=== PATIENT | male | born 1995 | race Caucasian/White ===

== ENCOUNTER 2019-08-22 00:30 | Observation (INO) ==
[2019-08-22] MEDS ORDERED: Ketamine *HR* 500 MG/10 ML MDV ONE (00:33)
[2019-08-22 00:59] LABS: Hematocrit 44.9 % (37.5-50.1); Hemoglobin 15.1 g/dL (12.9-16.9); Immature Granulocytes % 0.2 % (0-4); Lymphocytes % 31.6 %; Mean Corpuscular HGB Conc 33.6 g/dL (31.6-35.5); Mean Corpuscular Hemoglobin 29.8 pg (28.0-33.3); Mean Corpuscular Volume 88.7 fL (83.0-100.0); Mean Platelet Volume 11.1 fL (9.4-12.4); Platelet Count 301 K/mcL (140-400); Red Blood Count 5.06 M/mcL (4.19-5.50); Red Cell Distribution Width 11.9 % (11.5-14.5); Segmented Neutrophils % 54.6 %; White Blood Count 9.9 K/mcL (4.3-11.1)
[2019-08-22 01:00] LABS: Basophils # 0.1 K/mcL (0.0-0.2); Basophils % 0.6 %; Eosinophils # 0.7 K/mcL (0.0-0.6); Lymphocytes # 3.1 K/mcL (0.6-4.6); Monocytes # 0.6 K/mcL (0.0-1.3); Neutrophils # 5.4 K/mcL (1.6-8.9)
[2019-08-22] MEDS ORDERED: Ondansetron 4 MG/2 ML VIAL IM ONE (01:05)
[2019-08-22 01:20] LABS: Acetaminophen < 10 mcg/mL (10-20); Alanine Aminotransferase 15 Units/L (7-52); Albumin 4.7 g/dL (3.5-5.7); Alkaline Phosphatase 48 Units/L (34-104); Aspartate Amino Transferase 18 Units/L (13-39); BUN/Creatinine Ratio 17 (6-26); Bilirubin,Total 0.4 mg/dL (0.3-1.0); Blood Urea Nitrogen 17 mg/dL (6-20); Calcium 8.9 mg/dL (8.6-10.3); Carbon Dioxide 17 mEq/L (23-29); Chloride 103 mEq/L (98-107); Ethanol 125 mg/dL (Less than 10); Globulin 2.4 g/dL (2.4-3.5); Glucose 121 mg/dL (70-105); Osmolality,Calculated 287 (280-300); Potassium 3.6 mEq/L (3.5-5.1); Salicylate < 2.5 mg/dL (15.0-30.0); Sodium 137 mEq/L (136-145); Total Protein 7.1 g/dL (6.4-8.9); eGFR For African Americans > 60 (> 60); eGFR For Non-African Americans > 60 (> 60)
[2019-08-22 01:27] LABS: Amphetamine Screen,Urine Negative ng/mL (Cutoff=1000); Barbiturate Screen,Urine Negative ng/mL (Cutoff=200); Benzodiazepines Screen,Urine Negative ng/mL (Cutoff=200); Cannabinoid Screen,Urine Negative ng/mL (Cutoff = 50); Cocaine Screen,Urine Negative ng/mL (Cutoff= 300); Opiate Screen,Urine Negative ng/mL (Cutoff=300); Phencyclidine Screen,Urine Negative ng/mL (Cutoff=25)
[2019-08-22] MEDS ORDERED: *HR* Promethazine 25 MG/ML VIAL IVP ONE (02:53)
[2019-08-22 03:06] LABS: Troponin I < 0.03 ng/mL (< 0.04)
[2019-08-22] MEDS ORDERED: *HR* LORazepam 2 MG/ML VIAL IVP ONE (03:23)
[2019-08-22] MEDS ORDERED: Naloxone 0.4 MG/ML INJ IVP PRN (03:39)
[2019-08-22] MEDS ORDERED: 0.9 % Sodium Chloride 1,000 ML IVC SCH (03:45)
[2019-08-22] MEDS ORDERED: *HR* Promethazine 25 MG/ML VIAL IVP PRN (03:46)
[2019-08-22] MEDS ORDERED: *HR* LORazepam 2 MG/ML VIAL IVP PRN ×2 (03:46→03:52)
[2019-08-22] MEDS ORDERED: *HR* Heparin 5,000 UNIT/ML VIAL SQ SCH (06:00)
[2019-08-22] MEDS ORDERED: Folic Acid 1 MG TABLET PO SCH (09:00)
[2019-08-22 09:43] LABS: Bilirubin,Urine Negative (Negative); Blood,Urine Negative (Negative); Clarity,Urine Clear (Clear); Color,Urine Yellow (Yellow); Glucose,Urine (UA) Normal (Normal); Ketones,Urine Negative (Negative); Leukocyte Esterase,Urine Negative (Negative); Nitrite,Urine Negative (Negative); Protein,Urine Negative (Neg-Trace); Specific Gravity,Urine 1.007 (1.010-1.025); Urobilinogen,Urine Normal (Normal)
[2019-08-22 11:31] VITALS: BP 116/73
[2019-08-22] MEDS ORDERED: Thiamine (B-1) 100 MG, Folic Acid 1 MG, MVI, adult with vitamin K 10 ML in 0.9 % Sodi... IVPB SCH (18:00)
== END 2019-08-22 16:31 | disposition home or self-care (01) ==
LOC: EMEROOARM 00:30 → 3BNU 00:30
PROVIDERS: ADMIT Family Medicine; ATTEND Family Medicine